=== PATIENT | female | born 1990 | race Caucasian/White ===

== ENCOUNTER 2025-04-05 12:02 | Outpatient (OUT) | payer OTHER, SELFPAY ==
--- OUTSIDE RECORDS SUMMARY | 2023-12-30 05:30 | XMS_ITS ---
Author Organization [facility] Servic es Address [address] [facility] [place] [place] [address] Care Team Providers Care Venue Coordinator Name Role Phone Aquiles Luther Primary Care Provider [phone] REASON FOR VISIT FILLING Encounters Encounter Location Date Provider Diagnosis [place] [address] [place] [address] 12/30/2023 Aquiles Wade Plan Of Treatment No Information Progress Notes * NGUYỄN BRANDT IDOB: [birth year] (34 yo F)Acc No.[id number]:12/30/2023 Patient:?NGUYỄN BRANDT I :?AQUILES WADE DDSDOB:1990???Age: 33 Y???Sex:FemaleDate:4Phone:[phone]:[address], [place], [place] Subjective: * Chief Complaints: * F ILLING * Electronic signature of Aquiles Wade DDS on 04/05/2025 at 12:10 PM ESTSign off status: Pending * Provider: Renetta WADE DDS Date: 0 12/30/2023 Generated for Printing/Faxing/eTransmitting on:?04/05/2025 12:10 PM EST
--- OUTSIDE RECORDS SUMMARY | 2023-12-30 06:00 | XMS_ITS ---
Author Organization [facility] Servic es Address [address] [facility] [place] [address] Care Team Providers Care Cognos Administrator Name Role Phone Alexia Luther Primary Care Provider Hannah Bingham Unavailable [phone] REASON FOR VISIT PROPHY Encounters Encounter Location Date Provider Diagnosis [place] [address] [place] [address] 12/30/2023 Hannah Bingham Plan Of Treatment No Information Progress Notes * NGUYỄN BRANDT IDOB: [birth year] (34 yo F)Acc No.[id number]:12/30/2023 Patient:NGUYỄN VINES I :?Hannah FosterDOB:1990???Age:33 Y???Sex: FemaleDate:4Phone:[phone]:[address], [place], [place]Vsk:Alexia Grayson Subjective: * Chief Complaints: * P ROPHY * Electronic signature of Hannah Bingham on 04/05/2025 at 12:10 PM ESTSign off status: Pending * Provider: Jordan Foster Date: 0 12/30/2023 Generated for Printing/Faxing/eTransmitting on:?04/05/2025 12:10 PM EST
--- OUTSIDE RECORDS SUMMARY | 2025-04-05 12:11 | XMS_ITS | Patient Health Record ---
Author Organization [facility] [place] Address [address] [place] [address] Care Team Providers Care Sales Floor Team Member Name Role Phone Sean Adan Primary Care Provider Allergies Allergen (clinical drug ingredient) Drug/Non Drug Allergy documented on EMR Reaction Allergy Type Onset Date Status tramadol traMADol nausea and vomiting Drug Allergy Active Reason For Referral No Information Medications Medication SIG (Take, Route, Frequency, Duration) Notes Start Date End Date Status valACYclovir HCl 1 GM 1 tablet Orally TID; Durat ion: 10 days 04/30/2023ctive Social History Tobacco Use: Social History Observation Description Date Details (start date - stop date) Former Smoker NA - NA Tobacco Control (Standard) Question Answer Notes Tobacco use: Former smoker AUDIT-C (Standard) Question Answer Notes Did you have a drink containing alcohol in the p ast year? No Kfhkws3YffalkmhtssihlQcbqmndy Problems Problem Type SNOMED Code ICD Code Onset Dates Problem Status W/U Status Risk Notes Problem Acute sinusitis (28157746) Acute sinusiti s (J01.90) ActiveconfirmedProblemShoulder sprain (S43.409A)ActiveconfirmedProblem Derangement of knee (15694818)Knee internal derangement, unspecified laterality (M23.90)Activeconfirmed Vital Signs Blood pressure diastolic 76 mm Hg 04/05/2025 Hmufbx99.5 in04/05/2025lood pressure biftjuyi271 mm Hg04/05/20254757Yuuija297.2 lbs 04/05/2025BMI31.08 kg/m204/05/2025 Encounters Encounter Location Date Provider Diagnosis [facility] [address] [place] [address] 04/05/2025 Sean Hoy Dyspnea R06.00 and K nee internal derangement, unspecified laterality M23.90 [facility] [address] [place] [address] 09/21/2024 Sean Hoy Shoulder sprain S43.409A ; Knee internal derangement, unspecified laterality M23.90 and Acute sinusitis J01.90 [facility] [address] [place] [address] 09/14/2024 Sean Hoy Assessments Encounter Date Diagnosis (ICD Code) Assessment Notes Treatment Notes Treatment Clinical Notes Section Notes 04/05/2025 Dyspnea (ICD-10 - R06.00) need ct scan chewt - hx smpiking - CINTRON worse04/05/2025Knee internal derangement, unspecified laterality (ICD-10 - M23.90)KNee wiuth likel torn gjoewmhi28/21/2025 Shoulder sprain (ICD-10 - S43.409A)09/21/2024Knee internal derangement, unspecified laterality (ICD-10 - M23.90)09/21/2024ute sinusitis (ICD-10 - J01.90) Plan Of Treatment Pending Test Test Name Order Date CT CHEST WO CON 04/05/2025 MRI KNEE RT WO CON 04/05/2025 XR CHEST 2 V 04/05/2025 XR KNEE RT 3V 04/05/2025 Insurance Providers Payer Name Payer Address Payer Phone Subscriber Number Group Number Insured Name Patient Relationship to Insured Coverage Start Date Coverage End Date [facility] [address] [facility], [place] [id number] Alexei Monroeelf - patient is the insured Medical (General) History Surgical History Surgery Date(Month/Year) denies Hospitalization History Reason Date(Month/Year) denies
--- OUTSIDE RECORDS SUMMARY | 2025-04-05 12:11 | XMS_ITS | Patient Health Record ---
Author Organization [facility] Servic es Address [address] [facility] [place] [place] [address] Care Team Providers Care Computer Security Manager Name Role Phone Alexia Luther Primary Care Provider Reason For Referral No Information Medications Medication SIG (Take, Route, Frequency, Duration) Notes Start Date End Date Status Tylenol Active Plan Of Treatment No Information Insurance Providers Payer Name Payer Address Payer Phone Subscriber Number Group Number Insured Name Patient Relationship to Insured Coverage Start Date Coverage End Date DENTAL SUPERIOR [address] [facility] [place] [address] [id number] NGUYỄN BRANDT Self - patient is the insured 3 [facility] [facility] [address] [address] [place] [id number] BRANDTelf - patient is the [id number]
--- NOTE | 2025-04-05 12:20 | XR_ITS ---
[address] [address] Patient Name: NGUYỄN BRANDT MRN: [id number] date: 1990 Sex: F Assigned Patient Location: [facility] Current Patient Location: Accession/Order Number: [id number] Exam Date: 04/05/2025 12:25 Report Date: 04/06/2025 08:21 At the request of: SILVA HEATH MD Procedure: XR knee RT 3V RIGHT KNEE - 3 views COMPARISON: None CLINICAL DATA: Medial right knee pain for one to 2 years. AP, lateral and internal oblique views were obtained. There is no acute fracture or dislocation. There is no disproportionate joint space narrowing. There is slight squaring off the articular margins at the posterior patella. There is no knee effusion or soft tissue swelling. XR/XR knee RT 3V IMPRESSION: NO ACUTE BONY FINDINGS. Impression dictated by: Patricia Krishnamurthy M.D. 04/06/2025 8:21 AM Dictation Location: [place] [address] Electronically authenticated by: [id number] Y Date: 04/06/2025 08:21
--- NOTE | 2025-04-05 12:20 | XR_ITS ---
The [address] [address] Patient Name: NGUYỄN BRANDT MRN: [id number] date: 1990 Sex: F Assigned Patient Location: [facility] Current Patient Location: [facility] Accession/Order Number: [id number] Exam Date: 04/05/2025 12:25 Report Date: 04/05/2025 15:52 At the request of: SILVA HEATH MD Procedure: XR chest 2V PA AND LATERAL CHEST: CLINICAL HISTORY: dyspnea R06.00 COMPARISON: None FINDINGS: Unremarkable cardiomediastinal. Lungs clear. No effusion or pneumothorax. XR/XR chest 2V IMPRESSION: NO ACUTE CARDIOPULMONARY ABNORMALITY. Impression dictated by: Santy Hobbs M.D. 04/05/2025 3:52 PM Dictation Location: [place] [address] Electronically authenticated by: [id number] Y Date: 04/05/2025 15:52
== END 2025-04-05 12:03 | disposition home or self-care (01) ==
LOC: RAD 12:07
PROVIDERS: PCP Family Medicine; Visit Provider Family Medicine
DX: R06.00 Dyspnea, unspecified (principal); M23.91 Unspecified internal derangement of right knee
CPT/HCPCS: 71046; 73562

== ENCOUNTER 2025-05-21 08:31 | Outpatient (OUT) | payer OTHER, SELFPAY ==
--- OUTSIDE RECORDS SUMMARY | 2023-12-30 05:30 | XMS_ITS ---
Author Organization [facility] Servic es Address [address] [facility] [place] [address] Care Team Providers Care Art Supervisor Name Role Phone Aquiles Luther Primary Care Provider REASON FOR VISIT FILLING Encounters Encounter Location Date Provider Diagnosis [place] [address] [place] [address] 12/30/2023 Aquiles Wade Plan Of Treatment No Information Progress Notes * NGUYỄN BRANDT IDOB: [birth year] (34 yo F)Acc No.[id number]:12/30/2023 Patient:?NGUYỄN BRANDT I :?AQUILES WADE DDSDOB:1990???Age: 33 Y???Sex:FemaleDate:4Phone:[phone]:[address], [place], [place] Subjective: * Chief Complaints: * F ILLING * Electronic signature of Aquiles Wade DDS on 05/21/2025 at 08:35 AM ESTSign off status: Pending * Provider: Renetta WADE DDS Date: 0 12/30/2023 Generated for Printing/Faxing/eTransmitting on:?05/21/2025 08:35 AM EST
--- OUTSIDE RECORDS SUMMARY | 2023-12-30 06:00 | XMS_ITS ---
Author Organization [facility] Servic es Address [address] [place] [address] Care Team Providers Care Rn Case Management Name Role Phone Alexia Luther Primary Care Provider Hannah Bingham Unavailable [phone] REASON FOR VISIT PROPHY Encounters Encounter Location Date Provider Diagnosis [place] [address] [place] [address] 12/30/2023 Hannah Bingham Plan Of Treatment No Information Progress Notes * NGUYỄN BRANDT IDOB: [birth year] (34 yo F)Acc No.[id number]:12/30/2023 Patient:NGUYỄN VINES I :?Hannah FosterDOB:1990???Age:33 Y???Sex: FemaleDate:4Phone:[phone]:[address], [place], [place]Bag:Alexia Grayson Subjective: * Chief Complaints: * P ROPHY * Electronic signature of Hannah Bingham on 05/21/2025 at 08:35 AM ESTSign off status: Pending * Provider: Jordan Foster Date: 0 12/30/2023 Generated for Printing/Faxing/eTransmitting on:?05/21/2025 08:35 AM EST
--- OUTSIDE RECORDS SUMMARY | 2025-05-21 08:35 | XMS_ITS | Patient Health Record ---
Author Organization [facility] [place] Address [address] [place] [address] Care Team Providers Care Farm Management Teacher Name Role Phone Sean Heath Primary Care Provider Allergies Allergen (clinical drug ingredient) Drug/Non Drug Allergy documented on EMR Reaction Allergy Type Onset Date Status tramadol traMADol nausea and vomiting Drug Allergy Active Results Component Value Reference Range Notes XR chest 2V Reviewed date:04/05/2025 06:28:52 PM Interpretation: Performing Lab: Notes/Report: Source Facility: [place] [address] XRay Report Signed Patient: NGUYỄN MONROE I MR#: [id number] : 1990 Acct:[id number] Age/Sex: 34 / F ADM Date: 04/05/25 Loc: RAD Attending Dr: Shiraz Heath M.D. Ordering Physician: Shiraz Heath M.D. Date of Service: 04/05/25 Procedure(s): XR chest 2V Accession Number(s): [id number] cc: Shiraz Heath M.D. [place] [id number] Patient Name: NGUYỄN MONROE MRN: [id number] date: 1990 Sex: F Assigned Patient Location: RAD Current Patient Location: RAD Accession/Order Number: [id number] Exam Date: 04/05/2025 12:25 Report Date: 04/05/2025 15:52 At the request of: SHIRAZ HEATH MD Procedure: XR chest 2V PA AND LATERAL CHEST: CLINICAL HISTORY: dyspnea R06.00 COMPARISON: None FINDINGS: Unremarkable cardiomediastinal. Lungs clear. No effusion or pneumothorax. XR/XR chest 2V IMPRESSION: NO ACUTE CARDIOPULMONARY ABNORMALITY. Impression dictated by: Santy Hobbs M.D. 04/05/2025 3:52 PM Dictation Location: [place] [address] Electronically authenticated by: [id number] Y Date: 04/05/2025 15:52 Dictated By: Santy Hobbs M.D. Signed By: 04/05/25 1555 DD/ 155 TD/TT: Chemistry Quality Control Analyst: XR KNEE RT 3V Reviewed date:04/06/2025 02:05:09 PM Interpretation: Performing Lab: Notes/Report: Source Facility: [place] [address] XRay Report Signed Patient: NGUYỄN MONROE I MR#: [id number] : 1990 Acct:[id number] Age/Sex: 34 / F ADM Date: 04/05/25 Loc: [facility] Attending Dr: Shiraz Heath M.D. Ordering Physician: Shiraz Heath M.D. Date of Service: 04/05/25 Procedure(s): XR knee RT 3V Accession Number(s): [id number] cc: Shiraz Heath M.D. [place] [address] Patient Name: NGUYỄN MONROE MRN: [id number] date: 1990 Sex: F Assigned Patient Location: [facility] Current Patient Location: Accession/Order Number: [id number] Exam Date: 04/05/2025 12:25 Report Date: 04/06/2025 08:21 At the request of: SHIRAZ HEATH MD Procedure: XR knee RT 3V RIGHT KNEE - 3 views COMPARISON: None CLINICAL DATA: Medial right knee pain for one to 2 years. AP, lateral and internal oblique views were obtained. There is no acute fracture or dislocation. There is no disproportionate joint space narrowing. There is slight squaring off the articular margins at the posterior patella. There is no knee effusion or soft tissue swelling. XR/XR knee RT 3V IMPRESSION: NO ACUTE BONY FINDINGS. Impression dictated by: Patricia Krishnamurthy M.D. 04/06/2025 8:21 AM Dictation Location: [place] [address] Electronically authenticated by: [id number] Y Date: 04/06/2025 08:21 Dictated By: Patricia Krishnamurthy M.D. Signed By: 04/06/25823 DD/ 0 TD/TT: Chemistry Quality Control Analyst: Reason For Referral No Information Medications Medication [...] alcohol in the p ast year? No Fawoag1FmlnorhmfuntzsFrfybmve Problems Problem Type SNOMED Code ICD Code Onset Dates Problem Status W/U Status Risk Notes Problem Acute sinusitis (50436072) Acute sinusiti s (J01.90) ActiveconfirmedProblemShoulder sprain (S43.409A)ActiveconfirmedProblem Derangement of knee (80452377)Knee internal derangement, unspecified laterality (M23.90)Activeconfirmed Vital Signs Blood pressure diastolic 76 mm Hg 04/05/2025 Losmez55.5 in04/05/2025lood pressure uehsmmyw412 mm Hg04/05/20257843Tbqhwr857.2 lbs 04/05/2025BMI31.08 kg/m204/05/2025 Encounters Encounter Location Date Provider Diagnosis [facility] [address] [place] [address] 09/14/2024 Sean [facility] [place] [address] 04/05/2025Sean [facility] [place] [address]/09/2024[facility] [place] [address]/08/2024Doug HoyDyspnea R06.00 and Knee internal derangement, unspecified laterality M23.90[facility] [place] [address]/Doug HoyShoulder sprain S43.409A ; Knee internal derangement, unspecified laterality M23.90 and Acute sinusitis J01.90 Assessments Encounter Date Diagnosis (ICD Code) Assessment Notes Treatment Notes Treatment Clinical Notes Section Notes 04/05/2025 Dyspnea (ICD-10 - R06.00) need ct scan chewt - hx smpiking - CINTRON worse04/05/2025Knee internal derangement, unspecified laterality (ICD-10 - M23.90)KNee wiuth likel torn xwtcyhej45/21/2025 Shoulder sprain (ICD-10 - S43.409A)09/21/2024Knee internal derangement, unspecified laterality (ICD-10 - M23.90)09/21/2024ute sinusitis (ICD-10 - J01.90) Plan Of Treatment Pending Test Test Name Order Date CT CHEST WO CON 04/05/2025 MRI KNEE RT WO CON 04/05/2025 XR CHEST 2 V 04/05/2025 Insurance Providers Payer Name Payer Address Payer Phone Subscriber Number Group Number Insured Name Patient Relationship to Insured Coverage Start Date Coverage End Date [facility] [address] [facility] [place] [phone] [id number] Alexei Monroeelf - patient is the insured Medical (General) History Surgical History Surgery Date(Month/Year) denies Hospitalization History Reason Date(Month/Year) denies
--- OUTSIDE RECORDS SUMMARY | 2025-05-21 08:35 | XMS_ITS | Patient Health Record ---
Author Organization [facility] Servic es Address [address] [place] [address] Care Team Providers Care Machine Plaster Mixer Name Role Phone Alexia Luther Primary Care Provider Reason For Referral No Information Medications Medication SIG (Take, Route, Frequency, Duration) Notes Start Date End Date Status Tylenol Active Plan Of Treatment No Information Insurance Providers Payer Name Payer Address Payer Phone Subscriber Number Group Number Insured Name Patient Relationship to Insured Coverage Start Date Coverage End Date DENTAL SUPERIOR [address] [facility] [address] [place] [address] [phone] [id number] NGUYỄN BRANDT Self - patient is the insured 3 [facility] [facility] [address] [address] [place] [id number] BRANDTelf - patient is the [id number]
--- NOTE | 2025-05-21 08:45 | CT_ITS ---
The [address] [address] Patient Name: NGUYỄN BRANDT MRN: [id number] date: 1990 Sex: F Assigned Patient Location: MRI Current Patient Location: MRI Accession/Order Number: [id number] Exam Date: 05/21/2025 08:50 Report Date: 05/21/2025 09:58 At the request of: SILVA HEATH MD Procedure: CT chest wo con CT CHEST WITHOUT CONTRAST COMPARISON: None CLINICAL DATA: Shortness of breath, chest pressure and rattling for the past year. Spiral axial unenhanced images were obtained through the chest. Images were reviewed using both narrow and wide window settings. This CT exam was performed using one or more following dose reduction techniques: Automated exposure control, adjustment of the mA and/or kV according to patient size, or use of iterative reconstruction technique. The heart is normal size. No pericardial effusion is present. No aortic aneurysm is seen. Soft tissue density at the anterior mediastinum may be residual thymic tissue. There is no suspected adenopathy given unenhanced technique. There is thoracolumbar levoscoliotic curvature and minimal endplate spurring. Scarring is seen at the lung apices. No consolidation, pleural effusion or pneumothorax is identified. There is a 3 mm left upper lobe nodule on axial image 42. Limited cuts through the upper abdomen show no contributory findings. CT/CT chest wo con IMPRESSION: MILD APICAL SCARRING TINY INCIDENTAL LEFT UPPER LOBE PULMONARY NODULE. NO ADDITIONAL ACUTE FINDINGS. Impression dictated by: Patricia Krishnamurthy M.D. 05/21/2025 9:58 AM Dictation Location: [place] [address] Electronically authenticated by: [id number] Y Date: 05/21/2025 09:58
== END 2025-05-21 08:32 | disposition home or self-care (01) ==
LOC: MRI 08:32
PROVIDERS: PCP Family Medicine; Visit Provider Family Medicine
DX: R06.00 Dyspnea, unspecified (principal); R91.1 Solitary pulmonary nodule
CPT/HCPCS: 71250

== ENCOUNTER 2025-06-02 14:03 | Emergency (ER) | payer OTHER, SELFPAY ==
--- OUTSIDE RECORDS SUMMARY | 2023-12-30 05:30 | XMS_ITS ---
Author Organization [facility] Servic es Address [address] [facility] [place] [place] [address] Care Team Providers Care Monorail Charger Operator Name Role Phone Aquiles Luther Primary Care Provider REASON FOR VISIT FILLING Encounters Encounter Location Date Provider Diagnosis [place] [address] [place] [address] 12/30/2023 Aquiles Wade Plan Of Treatment No Information Progress Notes * NGUYỄN BRANDT IDOB: [birth year] (34 yo F)Acc No.[id number]:12/30/2023 Patient:?NGUYỄN BRANDT I :?AQUILES KAT WADE DDSDOB:1990???Age: 33 Y???Sex:FemaleDate:4Phone:[phone]:[address], [place], [place] Subjective: * Chief Complaints: * F ILLING * Electronic signature of Aquiles Wade DDS on 06/02/2025 at 02:27 PM ESTSign off status: Pending * Provider: Renetta WADE DDS Date: 0 12/30/2023 Generated for Printing/Faxing/eTransmitting on:?06/02/2025 02:27 PM EST
--- OUTSIDE RECORDS SUMMARY | 2023-12-30 06:00 | XMS_ITS ---
Author Organization [facility] Servic es Address [address] [facility] [place] [address] Care Team Providers Care Car Porter Name Role Phone Alexia Luther Primary Care Provider Hannah Bingham Unavailable [phone] REASON FOR VISIT PROPHY Encounters Encounter Location Date Provider Diagnosis [place] [place] [address] 12/30/2023 Hannah Bingham Plan Of Treatment No Information Progress Notes * NGUYỄN BRANDT IDOB: [birth year] (34 yo F)Acc No.[id number]:12/30/2023 Patient:NGUYỄN VINES I :?Hannah FosterDOB:1990???Age:33 Y???Sex: FemaleDate:4Phone:[phone]:[address], [place], [place]Uby:Alexia Grayson Subjective: * Chief Complaints: * P ROPHY * Electronic signature of Hannah Bingham on 06/02/2025 at 02:27 PM ESTSign off status: Pending * Provider: Jordan Foster Date: 0 12/30/2023 Generated for Printing/Faxing/eTransmitting on:?06/02/2025 02:27 PM EST
[2025-06-02 14:09] VITALS: BP 151/68; PULSE 70; TEMP 36.6; O2SAT 100; BMI 30.2
--- NOTE | 2025-06-02 14:24 | ECG_ITS ---
The [facility] Test Date: 2025-06-02 Pat Name: NGUYỄN BRANDT Department: Room: - Gender: Female Recycling Manager: : 1990 Requested By: [id number] Order Number: [id number] Reading MD: MARIKA ROCHA M.D. Measurements Intervals [place] Rate: 62 P: 51 TX: 178 QRS: 71 QRSD: 76 T: 52 QT: 414 QTc: 420 Interpretive Statements 1100 Sinus rhythm 9110 normal ECG No previous ECG available for comparison Electronically Signed On 06-02-2025 16:57:34 EST by MARIKA ROCHA M.D.
--- OUTSIDE RECORDS SUMMARY | 2025-06-02 14:27 | XMS_ITS | Patient Health Record ---
Author Organization [facility] Servic es Address [address] [facility] [place] [address] Care Team Providers Care Park Warden Name Role Phone Alexia Luther Primary Care Provider Reason For Referral No Information Medications Medication SIG (Take, Route, Frequency, Duration) Notes Start Date End Date Status Tylenol Active Plan Of Treatment No Information Insurance Providers Payer Name Payer Address Payer Phone Subscriber Number Group Number Insured Name Patient Relationship to Insured Coverage Start Date Coverage End Date DENTAL SUPERIOR [address] [place] [address] [id number] NGUYỄN BRANDT Self - patient is the insured 3 [facility] [address] [address] [place] [id number] BRANDTelf - patient is the [id number]
--- OUTSIDE RECORDS SUMMARY | 2025-06-02 14:27 | XMS_ITS | Patient Health Record ---
Author Organization [facility] in [place] Address [address] [place] [address] Care Team Providers Care Online Marketing Director Name Role Phone Sean Heath Primary Care Provider Allergies Allergen (clinical drug ingredient) Drug/Non Drug Allergy documented on EMR Reaction Allergy Type Onset Date Status tramadol traMADol nausea and vomiting Drug Allergy Active Results Component Value Reference Range Notes XR chest 2V Reviewed date:04/05/2025 06:28:52 PM Interpretation: Performing Lab: Notes/Report: Source Facility: [place] [address] XRay Report Signed Patient: NGUYỄN MONROE I MR#: [id number] : 1990 Acct:[id number] Age/Sex: 34 / F ADM Date: 04/05/25 Loc: RAD Attending Dr: Shiraz Heath M.D. Ordering Physician: Shiraz Heath M.D. Date of Service: 04/05/25 Procedure(s): XR chest 2V Accession Number(s): [id number] cc: Shiraz Heath M.D. [place] [id number] Patient Name: NGUYỄN MONROE MRN: [id number] date: 1990 Sex: F Assigned Patient Location: RAD Current Patient Location: RAD Accession/Order Number: [id number] Exam Date: 04/05/2025 12:25 Report Date: 04/05/2025 15:52 At the request of: SHIRAZ HEATH MD Procedure: XR chest 2V PA AND LATERAL CHEST: CLINICAL HISTORY: dyspnea R06.00 COMPARISON: None FINDINGS: Unremarkable cardiomediastinal. Lungs clear. No effusion or pneumothorax. XR/XR chest 2V IMPRESSION: NO ACUTE CARDIOPULMONARY ABNORMALITY. Impression dictated by: Santy Hobbs M.D. 04/05/2025 3:52 PM Dictation Location: [place] [address] Electronically authenticated by: [id number] Y Date: 04/05/2025 15:52 Dictated By: Santy Hobbs M.D. Signed By: 04/05/25 1555 DD/ 155 TD/TT: [employer]: CT chest wo con Reviewed date:05/21/2025 01:04:33 PM Interpretation: Performing Lab: Notes/Report: Source Facility: [place] [address] CT Scan Report Signed Patient: NGUYỄN MONROE I MR#: [id number] : 1990 Acct:[id number] Age/Sex: 34 / F ADM Date: 05/21/25 Loc: MRI Attending Dr: Shiraz Hetah M.D. Ordering Physician: Shiraz Heath M.D. Date of Service: 05/21/25 Procedure(s): CT chest wo con Accession Number(s): [id number] cc: Shiraz Heath M.D. [place] [address] Patient Name: NGUYỄN MONROE MRN: [id number] date: 1990 Sex: F Assigned Patient Location: MRI Current Patient Location: MRI Accession/Order Number: [id number] Exam Date: 05/21/2025 08:50 Report Date: 05/21/2025 09:58 At the request of: SHIRAZ HEATH MD Procedure: CT chest wo con CT CHEST WITHOUT CONTRAST COMPARISON: None CLINICAL DATA: Shortness of breath, chest pressure and rattling for the past year. Spiral axial unenhanced images were obtained through the chest. Images were reviewed using both narrow and wide window settings. This CT exam was performed using one or more following dose reduction techniques: Automated exposure control, adjustment of the mA and/or kV according to patient size, or use of iterative reconstruction technique. The heart is normal size. No pericardial effusion is present. No aortic aneurysm is seen. Soft tissue density at the anterior mediastinum may be residual thymic tissue. There is no suspected adenopathy given unenhanced technique. There is thoracolumbar levoscoliotic curvature and minimal endplate spurring. Scarring is seen at the lung apices. No consolidation, pleural effusion or pneumothorax is identified. There is a 3 mm left upper lobe nodule on axial image 42. Limited cuts through the upper abdomen show no contributory findings. CT/CT chest wo con IMPRESSION: MILD APICAL SCARRING TINY INCIDENTAL LEFT UPPER LOBE PULMONARY NODULE. NO ADDITIONAL ACUTE FINDINGS. Impression dictated by: Patricia Krishnamurthy M.D. 05/21/2025 9:58 AM Dictation Location: [place] [address] Electronically authenticated by: [id number] Y Date: 05/21/2025 09:58 Dictated By: Patricia Krishnamurthy M.D. Signed By: 05/21/25 1001 DD/ 0958 TD/TT: [employer]: XR KNEE RT 3V Reviewed date:04/06/2025 02:05:09 PM Interpretation: Performing Lab: Notes/Report: Source Facility: [place] [address] [place] [address] XRay Report Signed Patient: NGUYỄN MONROE I MR#: [id number] : 1990 Acct:[id number] Age/Sex: 34 / F ADM Date: 04/05/25 Loc: RAD Attending Dr: Shiraz Heath M.D. Ordering Physician: Shiraz Heath M.D. Date of Service: 04/05/25 Procedure(s): XR knee RT 3V Accession Number(s): [id number] cc: Shiraz Heath M.D. [place] [address] Patient Name: NGUYỄN MONROE MRN: [id number] date: 1990 Sex: F Assigned Patient [facility]: [facility] Current Patient Location: Accession/Order Number: [id number] Exam Date: 04/05/2025 12:25 Report Date: 04/06/2025 [...] Krishnamurthy M.D. 04/06/2025 8:21 AM Dictation Location: [place] [address] Electronically authenticated by: [id number] Y Date: 04/06/2025 08:21 Dictated By: Patricia Krishnamurthy M.D. Signed By: 04/06/25823 DD/ 0 TD/TT: [employer]: Reason For Referral No Information Medications Medication [...] alcohol in the p ast year? No Nsrgnv3KxebkildkpsdrjFvasfhya Problems Problem Type SNOMED Code ICD Code Onset Dates Problem Status W/U Status Risk Notes Problem Acute sinusitis (75408977) Acute sinusiti s (J01.90) ActiveconfirmedProblemShoulder sprain (S43.409A)ActiveconfirmedProblem Derangement of knee (26802560)Knee internal derangement, unspecified laterality (M23.90)Activeconfirmed Vital Signs Blood pressure diastolic 76 mm Hg 04/05/2025 Ycrdmx99.5 in04/05/2025lood pressure dnibwyve488 mm Hg04/05/20256549Tuepkm918.2 lbs 04/05/2025BMI31.08 kg/m204/05/2025 Encounters Encounter Location Date Provider Diagnosis [facility] [address] [facility] [place] [address] 09/14/2024 Sean Hoy [facility] [place] [address] 04/05/2025[facility] [place] [address]/09/2024[facility] [place] [address]/[facility] [place] [address]/08/2024Doug HoyDyspnea R06.00 and Knee internal derangement, unspecified laterality M23.90[place] [address] [place] [address]/Doug HoyShoulder sprain S43.409A ; Knee internal derangement, unspecified laterality M23.90 and Acute sinusitis J01.90 Assessments Encounter Date Diagnosis (ICD Code) Assessment Notes Treatment Notes Treatment Clinical Notes Section Notes 04/05/2025 Dyspnea (ICD-10 - R06.00) need ct scan chewt - hx smpiking - CINTRON worse04/05/2025Knee internal derangement, unspecified laterality (ICD-10 - M23.90)KNee wiuth likel torn dirsbkhw23/21/2025 Shoulder sprain (ICD-10 - S43.409A)09/21/2024Knee internal derangement, [...] Insured Coverage Start Date Coverage End Date O [address] [facility], [facility] [id number] Alexei Monroeelf - patient is the insured Medical (General) History Surgical History Surgery Date(Month/Year) denies Hospitalization History Reason Date(Month/Year) denies
== END 2025-06-02 14:29 | disposition left against medical advice (07) ==
PROVIDERS: Emergency Provider Emergency Medicine; PCP Family Medicine
DX: Z53.21 Procedure and treatment not carried out due to patient leaving prior to being seen by health care provider (principal)
CPT/HCPCS: 93005; 99281; 99283